=== PATIENT | female | born 1980 | race Caucasian/White ===

== ENCOUNTER 2017-02-04 07:09 | Emergency (ER) | payer BC ==
[2017-02-04 07:31] VITALS: BP 117/72
--- NOTE | 2017-02-04 07:37 | UC ---
Throat Pain/Nasal Hernandez HPI - HPI Summary HPI Summary: SORE THROAT X 2 DAYS + PND, NASAL CONGESTION , NO FEVER, NO CHILLS, SAW PCP YESTERDAY WAS DIAGNOSED WITH ALLERGIC RHINITIS - History of Current Complaint Chief Complaint: UCRespiratory Stated Complaint: SORE THROAT Time Seen by Provider: 02/04/17 07:31 Hx Obtained From: Patient Hx Last Menstrual Period: 01/10/17 Onset/Duration: Gradual Onset, Lasting Days - 5, Still Present Severity: Moderate Cough: Nonproductive Associated Signs & Symptoms: Positive: Nasal Discharge. Negative: Sinus Discomfort, Fever, Rash - Allergies/Home Medications Allergies/Adverse Reactions: Allergies Allergy/AdvReac Type Severity Reaction Status Date / Time Prochlorperazine Allergy Unknown Verified 02/04/17 07:17 [From Compazine] Reaction Details Sulfa Antibiotics Allergy Vomiting Verified 02/04/17 07:17 PMH/Surg Hx/FS Hx/Imm Hx Previously Healthy: Yes - Surgical History Surgical History: Yes Surgery Procedure, Year, and Place: TONSILLECTOMY,IVF - Family History Known Family History: Positive: None Negative: Diabetes - Social History Alcohol Use: Occasionally Substance Use Type: None Smoking Status (MU): Former Smoker - Immunization History Most Recent Influenza Vaccination: None Most Recent Tetanus Shot: UTD Most Recent Pneumonia Vaccination: N/A Review of Systems Constitutional: Negative Skin: Negative Eyes: Negative ENT: Sore Throat, Nasal Discharge Respiratory: Cough Cardiovascular: Negative Gastrointestinal: Negative Genitourinary: Negative All Other Systems Reviewed And Are Negative: Yes Physical Exam Triage Information Reviewed: Yes Appearance: Well-Appearing, No Pain Distress, Well-Nourished Vital Signs: Initial Vital Signs Temp 97.7 F 02/04/17 07:18 Pulse 63 02/04/17 07:18 Resp 18 02/04/17 07:18 BP 117/72 02/04/17 07:18 Pulse Ox 100 02/04/17 07:18 Vital Signs Reviewed: Yes Eyes: Positive: Conjunctiva Clear ENT: Positive: Normal ENT inspection, Hearing grossly normal, Pharynx normal, Nasal congestion, Nasal drainage, TMs normal Neck: Positive: Supple, Nontender Respiratory: Positive: Chest non-tender, Lungs clear, Normal breath sounds Cardiovascular: Positive: RRR, No Murmur, Pulses Normal Abdominal Exam: Normal Skin Exam: Normal Throat Pain/Nasal Course/Dx - Differential Dx/Diagnosis Provider Diagnoses: VIRAL PHARYNGITIS Discharge - Discharge Plan Condition: Stable Disposition: HOME Patient Education Materials: Pharyngitis (ED) Referrals: Bea Lacey MD [Primary Care Provider] - If Needed
== END 2017-02-04 07:39 | disposition home or self-care (01) ==
LOC: UCCORT 07:09
DX: J02.9 Acute pharyngitis, unspecified (principal); R09.81 Nasal congestion; Z88.2 Allergy status to sulfonamides; Z87.891 Personal history of nicotine dependence
CPT/HCPCS: 99211; G0463

== ENCOUNTER 2018-10-10 16:35 | Emergency (ER) | payer BC ==
[2018-10-10 17:06] VITALS: BP 130/76
--- NOTE | 2018-10-10 17:16 | UC ---
Respiratory Complaint HPI - HPI Summary HPI Summary: Pt c/o uri symptoms with cough that is worse at night in recumbent position X 1 week. - History of Current Complaint Stated Complaint: COUGH,CONGESTION Time Seen by Provider: 10/10/18 16:55 Hx Obtained From: Patient Hx Last Menstrual Period: 09/30/18 ?: No Onset/Duration: Gradual Onset Timing: Intermittent Episodes Severity Initially: Mild Severity Currently: Mild Pain Intensity: 2 Character: Cough: Nonproductive Aggravating Factors: Allergens, Deep Breaths, Recumbent Position Alleviating Factors: Nothing Associated Signs And Symptoms: Positive: URI, Nasal Congestion - Risk Factors Pulmonary Embolism Risk Factors: Negative Cardiac Risk Factors: Negative Pseudomonas Risk Factors: Negative Tuberculosis Risk Factors: Negative - Allergies/Home Medications Allergies/Adverse Reactions: Allergies Allergy/AdvReac Type Severity Reaction Status Date / Time prochlorperazine Allergy Unknown Unknown Verified 10/10/18 16:58 [From Compazine] Reaction Details Sulfa (Sulfonamide Allergy Unknown Vomiting Verified 10/10/18 16:58 Antibiotics) Home Medications: Home Medications D-Methorphan/PE/Acetaminophen [Vicks Dayquil Liquid] 1 liq PO PRN 10/10/18 [ History] PMH/Surg Hx/FS Hx/Imm Hx Previously Healthy: Yes - Surgical History Surgical History: Yes Surgery Procedure, Year, and Place: TONSILLECTOMY,IVF - Family History Known Family History: Positive: None Negative: Diabetes - Social History Occupation: Employed Full-time Lives: With Family Alcohol Use: Occasionally Substance Use Type: None Smoking Status (MU): Current Some Day Smoker Type: Cigarettes Amount Used/How Often: 2 CIGS PER WEEK Have You Smoked in the Last Year: Yes - Immunization History Most Recent Influenza Vaccination: None Most Recent Tetanus Shot: UTD Most Recent Pneumonia Vaccination: N/A Review of Systems All Other Systems Reviewed And Are Negative: Yes Constitutional: Positive: Fatigue Skin: Positive: Negative Eyes: Positive: Negative ENT: Positive: Sinus Congestion Respiratory: Positive: Cough Cardiovascular: Positive: Negative Gastrointestinal: Positive: Negative Genitourinary: Positive: Negative Motor: Positive: Negative Neurovascular: Positive: Negative Musculoskeletal: Positive: Negative Neurological: Positive: Negative Psychological: Positive: Negative Is Patient Immunocompromised?: No Physical Exam Triage Information Reviewed: Yes Appearance: Well-Appearing Vital Signs: Initial Vital Signs Temp 98.3 F 10/10/18 16:59 Pulse 77 10/10/18 16:59 Resp 17 10/10/18 16:59 BP 130/76 10/10/18 16:59 Pulse Ox 100 10/10/18 16:59 Vital Signs Reviewed: Yes Eye Exam: Normal ENT: Positive: Nasal congestion Dental Exam: Normal Neck exam: Normal Respiratory Exam: Normal Respiratory: Positive: No respiratory distress Cardiovascular Exam: Normal Musculoskeletal Exam: Normal Neurological Exam: Normal Psychological Exam: Normal Skin Exam: Normal UC Diagnostic Evaluation - Laboratory O2 Sat by Pulse Oximetry: 100 Respiratory Course/Dx - Differential Dx/Diagnosis Differential Diagnosis/HQI/PQRI: Bronchitis Provider Diagnosis: Viral syndrome, Cough Discharge - Sign-Out/Discharge Documenting (check all that apply): Patient Departure All imaging exams completed and their final reports reviewed: No Studies - Discharge Plan Condition: Stable Disposition: HOME Prescriptions: Benzonatate CAP* [Tessalon 100 MG CAP*] 200 mg PO Q8H PRN #30 cap PRN Reason: Cough Codeine Phosphate/Guaifenesin [Guaifen-Codeine 100-10 mg/5 ml] 5 ml PO BEDTIME PRN #15 ml MDD 5 PRN Reason: Cough predniSONE TAB* [Deltasone 10 MG TAB*] 30 mg PO DAILY #12 tab Patient Education Materials: Viral Syndrome (ED), Acute Cough (ED) Referrals: [facility] [Outside] - If Needed No Primary Care Phys,NOPCP [Primary Care Provider] - Additional Instructions: PLEASE DO NOT TAKE TESSALON PERLES WITH CODEINE COUGH SYRUP. - Billing Disposition and Condition Condition: STABLE Disposition: Home
== END 2018-10-10 17:31 | disposition home or self-care (01) ==
LOC: UCCORT 16:35
DX: B34.9 Viral infection, unspecified (principal); R05 Cough; Z88.2 Allergy status to sulfonamides; Z88.8 Allergy status to other drugs, medicaments and biological substances; F17.210 Nicotine dependence, cigarettes, uncomplicated
CPT/HCPCS: 99212; G0463

== ENCOUNTER 2018-10-17 08:10 | Emergency (ER) | payer BC ==
[2018-10-17 08:33] VITALS: BP 111/74
--- NOTE | 2018-10-17 08:49 | UC ---
Respiratory Complaint HPI - HPI Summary HPI Summary: The patient is a 38-year-old female that had cough and congestion times greater than 2 weeks. She has no history of asthma bronchitis or pneumonia. She had fever and chills with the onset of her symptoms. She denies any chest pain or shortness of breath. - History of Current Complaint Stated Complaint: RECHECK COUGH Hx Obtained From: Patient Hx Last Menstrual Period: "a couple weeks ago" Onset/Duration: Gradual Onset, Lasting Weeks Timing: Constant Severity Initially: Mild Severity Currently: Moderate Pain Intensity: 0 Pain Scale Used: 0-10 Numeric Character: Cough: Productive - at times Alleviating Factors: Nothing Associated Signs And Symptoms: Positive: Fever - at onset, Chills - at onset, Nasal Congestion. Negative: Dyspnea, Hemoptysis, Dizziness, Calf Pain, Calf Swelling, Edema, URI, Hoarseness, Sinus Discomfort - Allergies/Home Medications Allergies/Adverse Reactions: Allergies Allergy/AdvReac Type Severity Reaction Status Date / Time prochlorperazine Allergy Unknown Unknown Verified 10/17/18 08:30 [From Compazine] Reaction Details Sulfa (Sulfonamide Allergy Unknown Vomiting Verified 10/17/18 08:30 Antibiotics) PMH/Surg Hx/FS Hx/Imm Hx Previously Healthy: Yes - Surgical History Surgical History: Yes Surgery Procedure, Year, and Place: TONSILLECTOMY,IVF - Family History Known Family History: Positive: Hypertension Negative: Diabetes - Social History Alcohol Use: Occasionally Substance Use Type: None Smoking Status (MU): Current Some Day Smoker Type: Cigarettes Amount Used/How Often: 2 CIGS PER WEEK Have You Smoked in the Last Year: Yes - Immunization History Most Recent Influenza Vaccination: None Most Recent Tetanus Shot: UTD Most Recent Pneumonia Vaccination: N/A Review of Systems All Other Systems Reviewed And Are Negative: Yes Constitutional: Positive: Negative Skin: Positive: Negative Eyes: Positive: Negative ENT: Positive: Sinus Congestion Respiratory: Positive: Cough Cardiovascular: Positive: Negative Gastrointestinal: Positive: Negative Genitourinary: Positive: Negative Motor: Positive: Negative Neurovascular: Positive: Negative Musculoskeletal: Positive: Negative Neurological: Positive: Negative Psychological: Positive: Negative Physical Exam Triage Information Reviewed: Yes Appearance: Well-Appearing, No Pain Distress, Well-Nourished Vital Signs: Initial Vital Signs Temp 98.4 F 10/17/18 08:26 Pulse 76 10/17/18 08:26 Resp 16 12/26/18 08:26 BP 111/74 10/17/18 08:26 Pulse Ox 98 10/17/18 08:26 Vital Signs Reviewed: Yes Eyes: Positive: Conjunctiva Clear ENT: Negative: Pharyngeal erythema, Nasal congestion, Nasal drainage, Tonsillar swelling, Tonsillar exudate, Dental tenderness, Sinus tenderness, Uvula midline Respiratory: Positive: Lungs clear, Normal breath sounds, No respiratory distress, No accessory muscle use Cardiovascular: Positive: RRR Musculoskeletal: Positive: ROM Intact, No Edema Neurological: Positive: Alert Psychological Exam: Normal Skin Exam: Normal UC Diagnostic Evaluation - Laboratory O2 Sat by Pulse Oximetry: 98 - normal/not hypoxic - Radiology Radiology Interpretation Completed By: Radiologist Summary of Radiographic Findings: Probable mild inflammatory infiltrate at the lingula and LEFT upper lobe Respiratory Course/Dx - Differential Dx/Diagnosis Provider Diagnosis: Pneumonia Discharge - Sign-Out/Discharge Documenting (check all that apply): Patient Departure All imaging exams completed and their final reports reviewed: Yes - Discharge Plan Condition: Stable Disposition: HOME Prescriptions: Amoxicillin/Clavulanate TAB* [Augmentin TAB 875*] 875 mg PO BID #14 tab Patient Education Materials: Pneumonia (ED) Additional Instructions: I suggest you take an expectorant (robitussin or mucinex) recheck for worsening symptoms get recheck at your doctor's office in 2-3 weeks you may need a repeat CXR to assure resolution of your pneumonia - Billing Disposition and Condition Condition: STABLE Disposition: Home
[2018-10-17] MEDS ORDERED: Ipratropium 0.5MG/2.5ML NEB* 0.5 MG/2.5 ML NEB.SOLN INH ONE (08:52)
[2018-10-17] MEDS ORDERED: Albuterol 2.5 MG/3 ML NEB.SOL* (0.083%) INH ONE (08:52)
== END 2018-10-17 09:48 | disposition home or self-care (01) ==
LOC: UCCORT 08:10
DX: J18.9 Pneumonia, unspecified organism (principal); Z88.8 Allergy status to other drugs, medicaments and biological substances; Z88.2 Allergy status to sulfonamides; F17.210 Nicotine dependence, cigarettes, uncomplicated
CPT/HCPCS: 71046; 99212; G0463

== ENCOUNTER 2019-09-22 07:25 | Emergency (ER) | payer BC ==
[2019-09-22 07:37] VITALS: BP 115/64
--- NOTE | 2019-09-22 08:12 | UC ---
Complaint Female HPI - HPI Summary HPI Summary: 39-year-old female who has had symptoms of urinary tract infection such as burning on urination and frequency. Today she had a little bit of blood in her urine. She denies any fever or chills. - History Of Current Complaint Chief Complaint: UCGU Stated Complaint: URINARY COMPLAINT Time Seen by Provider: 09/22/19 07:52 Hx Obtained From: Patient Hx Last Menstrual Period: "a couple weeks ago" ?: No Onset/Duration: Gradual Onset Timing: Intermittent Severity Initially: Mild Severity Currently: Mild Pain Intensity: 0 Character: Burning Aggravating Factor(s): Urination Associated Signs And Symptoms: Positive: Negative - Allergies/Home Medications Allergies/Adverse Reactions: Allergies Allergy/AdvReac Type Severity Reaction Status Date / Time prochlorperazine Allergy Unknown Unknown Verified 09/22/19 07:33 [From Compazine] Reaction Details Sulfa (Sulfonamide Allergy Unknown Vomiting Verified 09/22/19 07:33 Antibiotics) Home Medications: Home Medications Aspirin 81 mg CHEW TAB* [Aspirin Low Dose TAB*] 81 mg PO DAILY 09/22/19 [ History Confirmed 09/22/19] Estradiol [Estrace] 2 mg VAGINAL BID 09/22/19 [History Confirmed 09/22/19] Naltrexone TAB* 4.5 mg PO BEDTIME 09/22/19 [History Confirmed 09/22/19] Pnv No.95/Ferrous Fum/Folic AC [ Vitamin & Minera 28-0.8 mg] 1 tab PO DAILY 09/22/19 [History Confirmed 09/22/19] Progesterone, Micronized [Endometrin] 100 mg VG BID 09/22/19 [History Confirmed 09/22/19] Tacrolimus CAP(*) [Prograf CAP(*)] 0.5 mg PO BID 09/22/19 [History Confirmed 11/10] predniSONE TAB* [Deltasone TAB*] 5 mg PO BID 09/22/19 [History Confirmed ] proGESTerone [Progesterone] 50 mg IM DAILY 09/22/19 [History Confirmed 09/22/19] PMH/Surg Hx/FS Hx/Imm Hx Previously Healthy: Yes - Surgical History Surgical History: Yes Surgery Procedure, Year, and Place: TONSILLECTOMY,IVF. D&C - Family History Known Family History: Positive: None, Hypertension Negative: Diabetes - Social History Alcohol Use: None Substance Use Type: None Smoking Status (MU): Former Smoker Type: Cigarettes Amount Used/How Often: 2 CIGS PER WEEK Have You Smoked in the Last Year: Yes - Immunization History Most Recent Influenza Vaccination: None Most Recent Tetanus Shot: UTD Most Recent Pneumonia Vaccination: N/A Review of Systems All Other Systems Reviewed And Are Negative: Yes Genitourinary: Positive: Dysuria, Hematuria - Small amount of blood in her urine this morning., Frequency Is Patient Immunocompromised?: No Physical Exam Triage Information Reviewed: Yes Appearance: Well-Appearing, No Pain Distress, Well-Nourished Vital Signs: Initial Vital Signs Temp 97.4 F 09/22/19 07:34 Pulse 81 09/22/19 07:34 Resp 15 09/22/19 07:34 BP 115/64 09/22/19 07:34 Pulse Ox 98 09/22/19 07:34 Vital Signs Reviewed: Yes Eyes: Positive: Conjunctiva Clear ENT: Positive: Hearing grossly normal Respiratory: Positive: Lungs clear, Normal breath sounds, No respiratory distress, No accessory muscle use Cardiovascular: Positive: RRR, No Murmur, Pulses Normal, Brisk Capillary Refill Abdomen Description: Positive: Nontender, No Organomegaly, Soft. Negative: CVA Tenderness (R), CVA Tenderness (L), Distended, Guarding, Hepatomegaly, Splenomegaly Bowel Sounds: Positive: Present Musculoskeletal Exam: Normal Neurological Exam: Normal Psychological Exam: Normal Skin Exam: Normal Complaint Female Dx - Course Course Of Treatment: Urinalysis: Positive for leukocytes, blood, ketones and protein. test negative. The patient is comfortable here and nontoxic. Going to treat her with Macrobid and Pyridium. She is to follow-up with her primary care provider if no improvement in 3 or 4 days. - Differential Dx/Diagnosis Provider Diagnosis: UTI (urinary tract infection) Discharge ED - Sign-Out/Discharge Documenting (check all that apply): Patient Departure All imaging exams completed and their final reports reviewed: No Studies - Discharge Plan Condition: Good Disposition: HOME Prescriptions: Nitrofurantoin Monohyd/M-Cryst [Macrobid 100 mg Capsule] 100 mg PO BID 7 Days # 14 cap Phenazopyridine TAB* [Pyridium 100 mg TAB*] 100 mg PO TID PRN #9 tab PRN Reason: Spasms Patient Education Materials: Urinary Tract Infection in Women (DC) Referrals: Lenny Massey MD [Primary Care Provider] - Additional Instructions: Increase fluids, if you develop any fever, chills, back pain and vomiting and unable keep the medication down your to go to the emergency room for further treatment. You may want to follow-up with your primary care provider after about 1 week to make sure the urinary tract infection has cleared. - Billing Disposition and Condition Condition: GOOD Disposition: Home
--- OUTSIDE RECORDS SUMMARY | 2019-09-24 15:54 | XMS REPORT | Continuity of Care Document ---
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 Problems Description No Active Problems Social History Type Date Description Comments Sex Unknown ETOH Use Drinks Alcoholic Beverages Occasionally Tobacco Use Start: Unknown Patient is a current smoker, smokes some days Smoking Status Reviewed: 08/05/19 Patient is a current smoker, smokes some days Allergies, Adverse Reactions, Alerts Active Allergies Reaction Severity Comments Date Compazine Family allergy 08/11/2011 Sulfa Drugs 07/07/2015 Medications Active Medications SIG Qnty Indications Ordering Date Provider Progesterone take 1 capsule by Unknown Micronized mouth every evening 200mg Capsules Fish Oil + D3 Take 1 capsule daily Unknown [id number] Capsules Co Q 10 1 by mouth every day Unknown 100mg Capsules + Complete take one capsule by Unknown Multi/Dha/Choline/Fo mouth every day. late 0.267&373mg THPK Omnitrope Inject 6 Untis Unknown 5.8mg Subcutaneously Once Solution Rec Daily Prednisone 1 tab by mouth twice a Unknown 5mg day Tablets Cetrotide once a day Unknown 0.25mg Kit Estradiol 2 by mouth every daily Unknown 1mg Tablets Vitamin D3 1 by mouth every day Unknown 5000Unit Tablets Dhea 1 capsule 3 times a Unknown 25mg Capsules day Gonal-F RFF Rediject Unknown 900Unit/1.5ML Solution Leuprolide Acetate Unknown 1mg/0.2ML Kit Menopur Unknown 75Unit Solution Rec History Medications 225 225units daily Lenny Massey MD 08/05/2019 - 08/05/2019 Menopautonic Lenny Massey MD 08/05/2019 - Capsules 08/05/2019 Macrobid 1 cap by mouth 6caps R30.0 Lenny Massey MD 07/11/2019 - 100mg Capsules twice a day 08/05/2019 Immunizations CPT Code Status Date Vaccine Lot # [id number] Given 07/11/2019 Pneumovax Injection [id number] Given 07/11/2019 MMR Vaccine, Live, For Subcutaneous Use [id number] Given 07/11/2019 Influenza Virus Vaccine, Quadrivalent, 36 Mos+, [id number] .[id number] Vital Signs Date Vital Result Comment 08/05/2019 11:13am BP Systolic Sitting Left Arm 118 mmHg BP Diastolic Sitting Left Arm 73 mmHg Body Temperature 98.2 F Heart Rate 68 /min Respiratory Rate 18 /min Height 68 inches 5'8" Weight 179.00 lb BMI (Body Mass Index) 27.2 kg/m2 BSA (Body Surface Area) 1.95 m2 [place] body weight in kilograms 63 kg O2 % BldC Oximetry 98 % 07/11/2019 3:29pm BP Systolic 126 mmHg BP Diastolic 89 mmHg Body Temperature 98.8 F Heart Rate 115 /min Respiratory Rate 18 /min Height 68 inches 5'8" Weight 177.00 lb BMI (Body Mass Index) 26.9 kg/m2 BSA (Body Surface Area) 1.94 m2 [place] body weight in kilograms 63 kg O2 % BldC Oximetry 95 % Ra Results Test Date Facility Test Result H/L Range Note Urine Dipstick 07/11/2019 [facility] Color yellow Yellow Ua Clarity clear Clear Ua Leuko 500 High Negative Ua Nitrite negative Negative Ua Urobilinogen 3.5 High 0.2 - 1.0 E.U./dL Ua Protein 0.15 High Negative Ua PH 6.0 Low 6.5-7.5 Ua Blood 200 High Negative Ua Specific [place] 1.020 1.010-1.030 Ua Ketones 8 High Negative Ua Bilirubin negative Negative Ua Glucose negative Negative Urine Culture 07/11/2019 [facility] [address] Urine Culture ESCHERICHIA COLI Abnormal [address] [place] [address] [phone] Quantity > 100,000 CFU/mL 2 Ast-[id number] 07/11/[address] [facility] [address] Nitrofurantoin <=16 Susceptible [address] [place] [address] [phone] Trimethoprim/Sulfamethoxazole <=20 Susceptible Ampicillin <=2 Susceptible Cefazolin <=4 Susceptible Ampicillin/Sulbactam <=2 Susceptible Ciprofloxacin <=0.25 Susceptible Piperacillin/Tazobactam <=4 Susceptible Ceftazidime <=1 Susceptible Ceftriaxone <=1 Susceptible Cefepime <=1 Susceptible Levofloxacin <=0.12 Susceptible Imipenem <=0.25 Susceptible Gentamicin <=1 Susceptible Tobramycin <=1 Susceptible 1 ESCHERICHIA COLI 2 > 100,000 CFU/mL Procedures Date Code Description Status 08/05/2019 90139 EKG-Tracing And Report Completed Medical Devices Description No Information Available Encounters Type Date Location Provider Dx Diagnosis Office Visit 07/11/2019 Family Medicine Lenny Massey MD Z00.00 Encntr for general 3:10p [facility] adult medical exam w/o abnormal findings R30.0 Dysuria Z23 Encounter for immunization Z13.6 Encounter for screening for cardiovascular disorders Z13.0 Encntr screen for dis of the bld/bld-form org/immun mechnsm Z13.1 Encounter for screening for diabetes mellitus Z13.29 Encounter for screening for oth suspected endocrine disorder Assessments Date Code Description Provider 08/05/2019 R07.89 Other chest pain Lenny Massey MD 07/11/2019 Z00.00 Encounter for general adult medical examination Lenny Massey MD without abnormal findings 07/11/2019 R30.0 Dysuria Lenny Massey MD 07/11/2019 Z23 Encounter for immunization Lenny Massey MD 07/11/2019 Z13.6 Encounter for screening for cardiovascular Lenny Massey MD disorders 07/11/2019 Z13.0 Encounter for screening for diseases of the blood Lenny Massey MD and blood-forming organs and certain disorders involving the immune mechanism 07/11/2019 Z13.1 Encounter for screening for diabetes mellitus Lenny Massey MD 07/11/2019 Z13.29 Encounter for screening for other suspected Lenny Massey MD endocrine disorder Plan of Treatment 08/05/2019 - Lenny Massey MDR07.89 Other chest painNew Labs:D-Dimer, Quantitative, Ordered: 08/05/19 Functional Status Description No Information Available Mental Status Description No Information Available Referrals Description No Information Available
== END 2019-09-22 08:23 | disposition home or self-care (01) ==
LOC: UCCORT 07:25
DX: N39.0 Urinary tract infection, site not specified (principal); R31.9 Hematuria, unspecified; Z88.8 Allergy status to other drugs, medicaments and biological substances; Z88.2 Allergy status to sulfonamides; Z79.82 Long term (current) use of aspirin; Z87.891 Personal history of nicotine dependence
CPT/HCPCS: 81003; 84702; 87077; 87086; 87186; 99212; G0463

== ENCOUNTER 2019-10-04 18:35 | Emergency (ER) | payer BC ==
[2019-10-04 18:49] VITALS: BP 114/78
--- NOTE | 2019-10-04 19:03 | UC ---
Complaint Female HPI - HPI Summary HPI Summary: Pt presents with c/o sudden onset of urinary symptoms of frequency, urgency and dysuria that began this evening. Pt is currently undergoing fertility "treatments" but denies risk for STI or . - History Of Current Complaint Chief Complaint: UCGU Stated Complaint: URINARY Time Seen by Provider: 10/04/19 18:58 Hx Obtained From: Patient Hx Last Menstrual Period: ~09/25/19 ?: No Onset/Duration: Sudden Onset, Lasting Hours, Still Present Timing: Constant Severity Initially: Mild Severity Currently: Mild Pain Intensity: 0 Character: Dull, Burning Aggravating Factor(s): Urination Alleviating Factor(s): Nothing Associated Signs And Symptoms: Positive: Negative - Risk Factors Ectopic Risk Factor: Maternal Age ^ 30 Ovarian Torsion Risk Factor: Reproductive Age - Allergies/Home Medications Allergies/Adverse Reactions: Allergies Allergy/AdvReac Type Severity Reaction Status Date / Time prochlorperazine Allergy Unknown Unknown Verified 10/04/19 18:43 [From Compazine] Reaction Details Sulfa (Sulfonamide Allergy Unknown Vomiting Verified 10/04/19 18:43 Antibiotics) Home Medications: Home Medications predniSONE TAB* [Deltasone TAB*] 1.25 mg PO EVERY OTHER DAY 10/04/19 [History Confirmed 10/04/19] PMH/Surg Hx/FS Hx/Imm Hx Previously Healthy: Yes - Surgical History Surgical History: Yes Surgery Procedure, Year, and Place: TONSILLECTOMY,IVF. D&C - Family History Known Family History: Positive: Hypertension Negative: Diabetes - Social History Occupation: Employed Full-time Lives: With Family Alcohol Use: Occasionally Substance Use Type: None Smoking Status (MU): Former Smoker Type: Cigarettes Amount Used/How Often: 2 CIGS PER WEEK Have You Smoked in the Last Year: Yes - Immunization History Most Recent Influenza Vaccination: None Most Recent Tetanus Shot: UTD Most Recent Pneumonia Vaccination: N/A Review of Systems All Other Systems Reviewed And Are Negative: Yes Constitutional: Positive: Negative Skin: Positive: Negative Eyes: Positive: Negative ENT: Positive: Negative Respiratory: Positive: Negative Cardiovascular: Positive: Negative Gastrointestinal: Positive: Negative Genitourinary: Positive: Dysuria, Frequency, Urgency Motor: Positive: Negative Neurovascular: Positive: Negative Musculoskeletal: Positive: Negative Neurological: Positive: Negative Psychological: Positive: Negative Is Patient Immunocompromised?: No Physical Exam Triage Information Reviewed: Yes Appearance: Well-Appearing Vital Signs: Initial Vital Signs Temp 97.4 F 10/04/19 18:41 Pulse 88 10/04/19 18:41 Resp 16 10/04/19 18:41 BP 114/78 10/04/19 18:41 Pulse Ox 100 10/04/19 18:41 Vital Signs Reviewed: Yes Eye Exam: Normal ENT Exam: Normal Dental Exam: Normal Neck exam: Normal Respiratory Exam: Normal Cardiovascular Exam: Normal Abdominal Exam: Normal Musculoskeletal Exam: Normal Neurological Exam: Normal Psychological Exam: Normal Skin Exam: Normal Complaint Female Dx - Course Course Of Treatment: Pt reports that she is traveling tomorrow for work so will plan to follow up with PCP if needed when she returns. - Differential Dx/Diagnosis Differential Diagnosis/HQI/PQRI: Urinary Tract Infection Provider Diagnosis: UTI (urinary tract infection) Discharge ED - Sign-Out/Discharge Documenting (check all that apply): Patient Departure All imaging exams completed and their final reports reviewed: No Studies - Discharge Plan Condition: Stable Disposition: HOME Prescriptions: Cephalexin CAP* [Keflex 500 CAP*] 500 mg PO Q12H #20 cap Fluconazole 100 MG TAB* [Diflucan 100 MG TAB*] 100 mg PO DAILY #2 tab Patient Education Materials: Urinary Tract Infection in Women (ED) Referrals: Lenny Massey MD [Primary Care Provider] - If Needed - Billing Disposition and Condition Condition: STABLE Disposition: Home - Attestation Statements Provider Attestation: I was available for consult. This patient was seen by the [facility]. The patient was not presented to, seen by, or examined by me. -Anisa
== END 2019-10-04 19:10 | disposition home or self-care (01) ==
LOC: UCCORT 18:35
DX: N39.0 Urinary tract infection, site not specified (principal); Z87.891 Personal history of nicotine dependence; Z88.2 Allergy status to sulfonamides; Z88.8 Allergy status to other drugs, medicaments and biological substances
CPT/HCPCS: 81003; 87086; 99212; G0463

== ENCOUNTER 2019-10-26 10:04 | Emergency (ER) | payer BC ==
[2019-10-26 10:29] VITALS: BP 109/75
--- NOTE | 2019-10-26 10:42 | UC ---
Complaint Female HPI - HPI Summary HPI Summary: 39-year-old female who has had burning on urination over the past couple of days. She has been involved with in vitro fertilization however has not had any treatments for one month. She denies any fever or chills. - History Of Current Complaint Chief Complaint: UCGU Stated Complaint: URINARY Time Seen by Provider: 10/26/19 10:12 Hx Obtained From: Patient Hx Last Menstrual Period: 10/21/19 ?: No Onset/Duration: Gradual Onset Timing: Intermittent Severity Initially: Mild Severity Currently: Mild Pain Intensity: 0 Character: Burning Aggravating Factor(s): Urination Alleviating Factor(s): Nothing Associated Signs And Symptoms: Positive: Negative - Allergies/Home Medications Allergies/Adverse Reactions: Allergies Allergy/AdvReac Type Severity Reaction Status Date / Time prochlorperazine Allergy Unknown Unknown Verified 10/26/19 10:24 [From Compazine] Reaction Details Sulfa (Sulfonamide Allergy Unknown Vomiting Verified 10/26/19 10:24 Antibiotics) Home Medications: Home Medications D-Methorphan/PE/Acetaminophen [Daytime Cold-Flu Relief Sftgl] 2 tab PO ONCE 02/09 [History Confirmed 10/26/19] PMH/Surg Hx/FS Hx/Imm Hx Previously Healthy: Yes - Surgical History Surgical History: Yes Surgery Procedure, Year, and Place: TONSILLECTOMY. IVF. D&C - Family History Known Family History: Positive: None, Hypertension Negative: Diabetes - Social History Alcohol Use: Rare Substance Use Type: None Smoking Status (MU): Former Smoker Type: Cigarettes Amount Used/How Often: 2 CIGS PER WEEK Have You Smoked in the Last Year: Yes When Did the Patient Quit Smoking/Using Tobacco: 2018 - Immunization History Most Recent Influenza Vaccination: None Most Recent Tetanus Shot: UTD Most Recent Pneumonia Vaccination: N/A Review of Systems All Other Systems Reviewed And Are Negative: Yes Genitourinary: Positive: Dysuria, Frequency, Urgency Is Patient Immunocompromised?: No Physical Exam Triage Information Reviewed: Yes Appearance: Well-Appearing, No Pain Distress, Well-Nourished Vital Signs: Initial Vital Signs Temp 97.5 F 10/26/19 10:25 Pulse 87 10/26/19 10:25 Resp 15 10/26/19 10:25 BP 109/75 10/26/19 10:25 Pulse Ox 99 10/26/19 10:25 Vital Signs Reviewed: Yes Respiratory: Positive: Lungs clear, Normal breath sounds, No respiratory distress, No accessory muscle use Cardiovascular: Positive: RRR, No Murmur, Pulses Normal, Brisk Capillary Refill Abdomen Description: Positive: Nontender, No Organomegaly, Soft. Negative: CVA Tenderness (R), CVA Tenderness (L), Distended, Guarding, Hepatomegaly, McBurney' s Point Tenderness, Splenomegaly Bowel Sounds: Positive: Present Musculoskeletal Exam: Normal Neurological Exam: Normal Psychological Exam: Normal Skin Exam: Normal Complaint Female Dx - Course Course Of Treatment: I'm going to treat the patient with cephalexin and she requested Pyridium. She is to follow-up with her primary care provider if no improvement in 2 or 3 days however I did advise her if she gets another urinary tract infection after this she may want to follow-up with a urologist since she had one 1 month ago and one prior to that as well. - Differential Dx/Diagnosis Provider Diagnosis: UTI (urinary tract infection) Discharge ED - Sign-Out/Discharge Documenting (check all that apply): Patient Departure All imaging exams completed and their final reports reviewed: No Studies - Discharge Plan Condition: Fair Disposition: HOME Prescriptions: Cephalexin CAP* [Keflex 500 CAP*] 500 mg PO TID 10 Days #30 cap Phenazopyridine TAB* [Pyridium 100 mg TAB*] 100 mg PO TID PRN #10 tab PRN Reason: Spasms Patient Education Materials: Urinary Tract Infection in Women (DC) Referrals: Lenny Massey MD [Primary Care Provider] - Additional Instructions: Increase fluids, follow-up with your primary care provider if no improvement in 3 or 4 days. Go to the emergency room if he develops any back pain, fever, chills, vomiting and unable keep the medication down. - Billing Disposition and Condition Condition: FAIR Disposition: Home
--- NOTE | 2019-10-28 07:24 | UC ---
- Progress Note Progress Note: Treated with cephalexin for suspected UTI. Please call to advise that culture is negative and that she can stop antibiotic. She should follow up with her PCP if still having symptoms for further evaluation. Course/Dx - Diagnoses Provider Diagnoses: UTI (urinary tract infection) Discharge ED - Sign-Out/Discharge Documenting (check all that apply): Post-Discharge Follow Up All imaging exams completed and their final reports reviewed: No Studies - Discharge Plan Condition: Fair Disposition: HOME Prescriptions: Cephalexin CAP* [Keflex 500 CAP*] 500 mg PO TID 10 Days #30 cap Phenazopyridine TAB* [Pyridium 100 mg TAB*] 100 mg PO TID PRN #10 tab PRN Reason: Spasms Patient Education Materials: Urinary Tract Infection in Women (DC) Referrals: Lenny Massey MD [Primary Care Provider] - Additional Instructions: Increase fluids, follow-up with your primary care provider if no improvement in 3 or 4 days. Go to the emergency room if he develops any back pain, fever, chills, vomiting and unable keep the medication down. - Billing Disposition and Condition Condition: FAIR Disposition: Home
== END 2019-10-26 11:01 | disposition home or self-care (01) ==
LOC: UCCORT 10:04
DX: N39.0 Urinary tract infection, site not specified (principal); Z88.2 Allergy status to sulfonamides; Z88.8 Allergy status to other drugs, medicaments and biological substances; Z87.891 Personal history of nicotine dependence
CPT/HCPCS: 81003; 84702; 87086; 99212; G0463